=== PATIENT | male | born 1950 | race Caucasian/White ===

== ENCOUNTER 2016-05-23 07:37 | Inpatient (IN) | payer MEDICARE ==
[~2016-05-23] VITALS: Ht 162.6 cm; Wt 67.6 kg
[~2016-05-23 07:37] MED LIST: AKTOB 5 ML5 ML OD; ALDACTONE 25MG25 M1 PO; AMIODARONE PO; ASMANEX TW0.22 MG/A1 IH; ASMANEX TW0.22 MG/AC IH; ASPIRIN 32325 MG/TAB PO; ASPIRIN 81M81 MG/TA2 PO; ASPIRIN E.C. 8181 MG PO; ASPIRIN E.C.325 MG PO; B-121000 MCG PO; BACTRIM DS 8001 TAB PO; CADUET 10 MG-201 TAB PO; CALCIUM 600MG+D1 TAB PO; CALCIUM500 MG PO; CATAPRES PATCH; CETIRIZINE HYDR10 MG PO; CLEOCIN HCL300 MG PO; COUMADIN 5MG5 MG/TAB PO; COUMADIN 77.5 MG/TAB PO; COUMADIN PO; COUMADIN4 MG PO; COZAAR 50MG50 MG/TAB PEG; D3 PO; DARVOCET-N-101 UDTAB PO; DESYREL 50MG50 MG PO; DOXYCYCLINE 10100 MG PO; ENALAPRIL10 MG PO; EPA FISH OIL1000 MG PO; FISH OIL1 IU PO; FLONASE NASAL S16 GM NS; FORADIL AERO0.012 MG IH; FORTAMET1000 MG PO; FORTAMET500 MG PO; GLUCOPHAGE850 MG/TAB PO; HCTZ 25MG TAB25 MG PO; HCTZ 25MG25 MG PO; K-DUR 10 MEQ T10 MEQ PO; KLOR-CON 1010 MEQ PO; LANTUS100 U/ML SQ; LASIX 40MG TABL40 MG PO; LASIX40 MG PO; LEVAQUIN 5500 MG/TAB PO; LEVEMIR100 U/ML SC; LEVEMIR100 U/ML SQ; LOPRESSOR 225 MG/TAB PO; LOPRESSOR 550 MG/TAB PO; LOPRESSOR50 MG PO; LORATADINE10 MG PO; LOVENOX120 MG/0.8 SC; MAREPA1200 MG PO; METFORMIN850 MG PO; METOPROLOL SR50 MG PO; MICRO-K 1010 MEQ PO; MIRALAX 17GM PK1 PKT PO; MIRALAX PA17 GM/Dose PO; MULTAQ400 MG PO; MULTI VITAMINS1 TAB PO; MULTIPLE VITAMI1 CAP PO; MULTIPLE VITAMI1 TAB PO; MVI PO; MYLANTA 360 ML360 ML PO; NASONEX SPRAY17 GM NS; NORCO 325 MG-51 TAB PO; NORCO 325 MG-7.1 TAB PO; NOVLOG SQ; NOVOLOG 100U100 U/M1 SC; NOVOLOG 100U100 U/M1 SQ; NOVOLOG 100U100 U/ML SQ; NOVOLOG SQ; OMEGA-3 FISH1200 MG PO; PERCOCET 325 MG1 TA2 PO; PLAVIX 75MG TAB75 MG PO; POTASSIUM CH2 MEQ/ML PO; POTASSIUM CHLO10 ME2 PO; PRILOSEC 20MG20 MG PO; PROAIR HFA0.09 MG/AC IH; PROVENTIL0.09 MG/A1 IH; PYRIDIUM 100MG100 MG PO; REQUIP0.25 MG PO; RITE AID KRILL500 MG PO; ROXICODONE 55 MG/TAB PO; SENOKOT S 50 MG1 TAB PO; SINGULAIR10 MG PO; TOPROL PO; TOPROL XL 50MG50 MG PO; TOPROL XL100 MG PO; TRIAMC 0.1 454 TOP; ULTRAM 50MG TAB50 MG PO; VASOTEC20 MG PO; VICODIN 5/5001 UDTAB PO; VITAMIN D NATU400 IU PO; VITAMIN D1000 IU PO; VITAMIN D32000 IU PO; ZOCOR 40MG40 MG PO; ZOCOR 80MG80 MG PO; ZOCOR PO; ZOFRAN8 MG PO; ZYRTEC 10MG10 MG PO; [UNRECOGNIZED DRUG - OTHER]; [UNRECOGNIZED DRUG - OTHER] PO; [UNRECOGNIZED DRUG - OTHER] PO
[2016-05-23 08:19] VITALS: BP 124/60; PULSE 55; TEMP 97.6
[2016-05-23 10:00] VITALS: BP 133/66; PULSE 53; TEMP 97.9
[2016-05-23 10:25] LABS: CALCIUM 8.9 mg/dL (8.4-10.2); CREATININE, serum 1.14 mg/dL (0.66-1.25); MAGNESIUM 1.9 mg/dL (1.6-2.3); POTASSIUM 4.4 mmol/L (3.4-5.0)
[2016-05-23 13:26] VITALS: BP 117/56; PULSE 53; TEMP 98.5
[2016-05-23 17:23] VITALS: BP 122/64; PULSE 52; TEMP 99
[2016-05-23 22:43] VITALS: BP 131/64; PULSE 76; TEMP 99
[2016-05-24 01:31] VITALS: BP 118/50; PULSE 56; TEMP 97.6
[2016-05-24 06:22] VITALS: BP 110/56; PULSE 57; TEMP 97.7
[2016-05-24 06:55] LABS: INR 2.9 (0.8-3.0); PROTHROMBIN TIME 33.4 SECONDS (9.7-12.8)
[2016-05-24 09:36] VITALS: BP 107/61; PULSE 57; TEMP 99.2
[2016-05-24 13:39] VITALS: BP 122/62; PULSE 54; TEMP 99
[2016-05-24 17:44] VITALS: BP 141/66; PULSE 51; TEMP 98.6
[2016-05-24 22:36] VITALS: BP 121/57; PULSE 65; TEMP 98.4
[2016-05-25 01:37] VITALS: BP 128/84; PULSE 58; TEMP 98.2
[2016-05-25 05:39] VITALS: BP 142/67; PULSE 57; TEMP 98.2
[2016-05-25 12:03] VITALS: BP 133/57; PULSE 52; TEMP 97.3
[2016-05-25] MEDS ORDERED: BETAPACE 80MG80 MG PO (12:37)
[2016-05-25 13:44] VITALS: BP 110/54; PULSE 56; TEMP 97.5
[2016-05-25 18:02] VITALS: BP 127/64; PULSE 59; TEMP 98.6
== END 2016-05-25 20:18 | disposition home or self-care (01) | DRG 310 ==
LOC: MEDICAL 07:37 → SURG 08:06
PROVIDERS: Internal Medicine Interventional Cardiology
DX: I48.0 Paroxysmal atrial fibrillation (principal); R00.1 Bradycardia, unspecified; T44.7X5A Adverse effect of beta-adrenoreceptor antagonists, initial encounter; Z95.1 Presence of aortocoronary bypass graft; Z86.711 Personal history of pulmonary embolism; Z98.84 Bariatric surgery status; Z96.643 Presence of artificial hip joint, bilateral; Z79.01 Long term (current) use of anticoagulants

== ENCOUNTER 2016-06-01 15:38 | Emergency (ER) | payer MEDICARE ==
[~2016-06-01] VITALS: Ht 162.6 cm; Wt 68.2 kg
[~2016-06-01 15:38] MED LIST changes: +BETAPACE 80MG80 MG PO
[2016-06-01 15:40] VITALS: BP 141/70; TEMP 97.6
[2016-06-01 16:40] VITALS: PULSE 61
== END 2016-06-01 17:01 | disposition home or self-care (01) ==
LOC: COL.ER 15:38
DX: S50.02XA Contusion of left elbow, initial encounter (principal); S63.502A Unspecified sprain of left wrist, initial encounter; S39.012A Strain of muscle, fascia and tendon of lower back, initial encounter; W00.0XXA Fall on same level due to ice and snow, initial encounter; Y92.009 Unspecified place in unspecified non-institutional (private) residence as the place of occurrence of the external cause; I10 Essential (primary) hypertension

== ENCOUNTER 2016-07-30 07:42 | Emergency (ER) | payer MEDICARE ==
[~2016-07-30] VITALS: Ht 162.6 cm; Wt 68.2 kg
[2016-07-30 07:45] VITALS: BP 141/73; PULSE 63; TEMP 97.5
== END 2016-07-30 08:30 | disposition home or self-care (01) ==
LOC: COL.ER 07:42
DX: S39.012A Strain of muscle, fascia and tendon of lower back, initial encounter (principal); S80.02XA Contusion of left knee, initial encounter; S50.812A Abrasion of left forearm, initial encounter; S50.811A Abrasion of right forearm, initial encounter; W18.09XA Striking against other object with subsequent fall, initial encounter; Y92.481 Parking lot as the place of occurrence of the external cause

== ENCOUNTER 2016-09-25 20:29 | Observation (INO) | payer MEDICARE ==
[~2016-09-25] VITALS: Ht 162.6 cm; Wt 78.6 kg
[2016-09-25 21:16] LABS: BASO % 0.5 % (0.0-2.0); EOS # 0.1 (0.0-0.7); EOS % 2.1 % (0-4.0); GRAN # 4.8 (1.4-6.5); GRAN % 77.7 % (42.2-75.2); LYMPH # 0.6 (1.2-3.4); MEAN CELL VOLUME 80 fl (80.0-100.0); MEAN CORPUSCULAR HGB CONC 30 g/dl (33.0-37.0); MEAN PLATELET VOLUME 9.3 fl (7.4-10.4); MONO # 0.6 (0.1-0.6); MONO % 9.5 % (1.7-9.3); PLATELET COUNT 235 K/mm3 (130-400); RED BLOOD COUNT 4.29 M/mm3 (4.20-5.60); REDCELL DISTRIBUTION WIDTH-CV 15.8 % (11.5-14.5); WHITE BLOOD COUNT 6.1 K/mm3 (4.8-10.8)
[2016-09-25 21:17] LABS: HEMATOCRIT 34.5 % (42.0-52.0); HEMOGLOBIN 10.5 g/dl (13.5-18.0); MEAN CORPUSCULAR HEMOGLOBIN 24 pg (27.0-31.0)
[2016-09-25 21:20] LABS: INR 2.7 (0.8-3.0); PROTHROMBIN TIME 30.3 SECONDS (9.7-12.8)
[2016-09-25 21:23] LABS: ADJUSTED CALCIUM 8.9 mg/dL (8.4-10.2); ALBUMIN 4.3 gm/dL (3.5-5.0); CALCIUM 9.1 mg/dL (8.4-10.2); CREATININE, serum 1.01 mg/dL (0.66-1.25); POTASSIUM 3.7 mmol/L (3.4-5.0); TOTAL PROTEIN 7.3 gm/dL (6.4-8.2)
[2016-09-25] MEDS ORDERED: PHENERGAN 25 TA25 MG PO (23:00)
[2016-09-26 00:16] LABS: PH 6 (5-8); SQUAMOUS EPITHELIAL None Seen /hpf; URINE APPEARANCE Clear; URINE BACTERIA Rare /hpf; URINE BILIRUBIN Negative (NEGATIVE); URINE BLOOD Negative (NEGATIVE); URINE COLOR Yellow; URINE GLUCOSE Negative (NEGATIVE); URINE KETONE Negative (NEGATIVE); URINE RBC 0-2 /hpf; URINE UROBILINOGEN Negative (NEGATIVE); URINE WBC 0-2 /hpf
[2016-09-26] MEDS ORDERED: XANAX 1MG1 MG PO (01:42)
[2016-09-26 02:11] VITALS: BP 132/66; PULSE 67; TEMP 98.5
[2016-09-26 07:07] LABS: BASO % 0.4 % (0.0-2.0); EOS # 0.1 (0.0-0.7); EOS % 2.6 % (0-4.0); GRAN # 3.7 (1.4-6.5); GRAN % 69.2 % (42.2-75.2); LYMPH # 0.9 (1.2-3.4); LYMPH % 16.3 % (20.0-51.0); MEAN CELL VOLUME 81 fl (80.0-100.0); MEAN CORPUSCULAR HGB CONC 30 g/dl (33.0-37.0); MEAN PLATELET VOLUME 9.1 fl (7.4-10.4); MONO # 0.6 (0.1-0.6); MONO % 11.3 % (1.7-9.3); PLATELET COUNT 207 K/mm3 (130-400); RED BLOOD COUNT 3.87 M/mm3 (4.20-5.60); REDCELL DISTRIBUTION WIDTH-CV 15.8 % (11.5-14.5); WHITE BLOOD COUNT 5.4 K/mm3 (4.8-10.8)
[2016-09-26 07:15] LABS: HEMATOCRIT 31.2 % (42.0-52.0); HEMOGLOBIN 9.5 g/dl (13.5-18.0); MEAN CORPUSCULAR HEMOGLOBIN 25 pg (27.0-31.0)
[2016-09-26 07:26] VITALS: BP 134/69; PULSE 69; TEMP 98.8
[2016-09-26 07:33] LABS: CALCIUM 8.8 mg/dL (8.4-10.2); CREATININE, serum 0.95 mg/dL (0.66-1.25); POTASSIUM 3.6 mmol/L (3.4-5.0)
[2016-09-26 11:33] VITALS: BP 112/95; PULSE 72; TEMP 98.3
[2016-09-26 15:48] VITALS: BP 131/60; PULSE 72; TEMP 99.5
== END 2016-09-26 18:00 | disposition home or self-care (01) ==
LOC: COL.ER 20:29 → MEDICAL 23:36
PROVIDERS: Emergency Medicine; Nurse Practitioner Family
DX: R11.2 Nausea with vomiting, unspecified (principal); Z98.84 Bariatric surgery status; D50.9 Iron deficiency anemia, unspecified; I25.10 Atherosclerotic heart disease of native coronary artery without angina pectoris; Z95.1 Presence of aortocoronary bypass graft; Z79.01 Long term (current) use of anticoagulants; E78.5 Hyperlipidemia, unspecified; I10 Essential (primary) hypertension; I50.9 Heart failure, unspecified; I45.10 Unspecified right bundle-branch block
CPT/HCPCS: 99222-AI; C9113; G0378; J2270; J2405; J2550; J7040; J7050; Q9967

== ENCOUNTER 2016-12-02 12:20 | Emergency (ER) | payer MEDICARE ==
[~2016-12-02] VITALS: Ht 162.6 cm; Wt 75.0 kg
[~2016-12-02 12:20] MED LIST changes: +PHENERGAN 25 TA25 MG PO; +XANAX 1MG1 MG PO
[2016-12-02 12:25] VITALS: BP 131/58; PULSE 56; TEMP 98.5
== END 2016-12-02 13:26 | disposition home or self-care (01) ==
LOC: COL.ER 12:20
DX: S63.502A Unspecified sprain of left wrist, initial encounter (principal); X50.1XXA Overexertion from prolonged static or awkward postures, initial encounter; I10 Essential (primary) hypertension; I48.91 Unspecified atrial fibrillation; Z79.01 Long term (current) use of anticoagulants; I25.10 Atherosclerotic heart disease of native coronary artery without angina pectoris; Z95.1 Presence of aortocoronary bypass graft

== ENCOUNTER → 2017-01-02 | Outpatient (CLI) | payer MEDICARE | LOC: COL.RAD 07:41 | DX: D64.9 Anemia, unspecified (principal) ==

== ENCOUNTER 2017-01-23 13:08 | Emergency (ER) | payer MEDICARE ==
[2017-01-23 13:11] VITALS: BP 146/78; TEMP 96.8
[2017-01-23 13:48] LABS: BASO % 0.4 % (0.0-2.0); EOS # 0.3 (0.0-0.7); EOS % 3.5 % (0-4.0); GRAN # 7.5 (1.4-6.5); GRAN % 78.8 % (42.2-75.2); HEMATOCRIT 39.2 % (42.0-52.0); HEMOGLOBIN 12.6 g/dl (13.5-18.0); LYMPH # 0.7 (1.2-3.4); LYMPH % 7.6 % (20.0-51.0); MEAN CELL VOLUME 88 fl (80.0-100.0); MEAN CORPUSCULAR HEMOGLOBIN 28 pg (27.0-31.0); MEAN CORPUSCULAR HGB CONC 32 g/dl (33.0-37.0); MEAN PLATELET VOLUME 8.7 fl (7.4-10.4); MONO # 0.9 (0.1-0.6); MONO % 9.3 % (1.7-9.3); PLATELET COUNT 144 K/mm3 (130-400); RED BLOOD COUNT 4.47 M/mm3 (4.20-5.60); REDCELL DISTRIBUTION WIDTH-CV 19.2 % (11.5-14.5)
[2017-01-23 13:54] LABS: INR 1.7 (0.8-3.0); PROTHROMBIN TIME 19.7 SECONDS (9.7-12.8)
[2017-01-23 13:56] LABS: PARTIAL THROMBOPLASTIN TIME 36.4 SECONDS (26.0-37.0)
[2017-01-23 14:42] VITALS: PULSE 65
[2018-08-17] MEDS ORDERED: ZOCOR 40MG40 MG PO (06:52)
[2018-08-17] MEDS ORDERED: B COMPLEX & B121 TAB PO (06:53)
[2018-08-17] MEDS ORDERED: MELATONIN1 MG PO (06:53)
[2018-08-17] MEDS ORDERED: ZYRTEC5 MG PO (06:54)
[2018-10-27] MEDS ORDERED: COUMADIN 5MG5 MG/TAB PO (08:27)
[2018-10-27] MEDS ORDERED: ZYRTEC 10MG10 MG PO (08:28)
[2018-10-27] MEDS ORDERED: MELATONIN5 M1 PO (08:32)
[2018-10-27] MEDS ORDERED: VITAMIN D31000 IU PO (08:44)
== END 2017-01-23 14:44 | disposition home or self-care (01) ==
LOC: COL.ER 13:08
PROVIDERS: Emergency Medicine
DX: R04.0 Epistaxis (principal); I11.0 Hypertensive heart disease with heart failure; I50.9 Heart failure, unspecified; I48.91 Unspecified atrial fibrillation; I25.10 Atherosclerotic heart disease of native coronary artery without angina pectoris; Z79.82 Long term (current) use of aspirin; Z79.01 Long term (current) use of anticoagulants

== ENCOUNTER 2017-03-12 18:05 | Emergency (ER) | payer MEDICARE ==
[~2017-03-12] VITALS: Ht 162.6 cm; Wt 75.5 kg
[2017-03-12 18:11] VITALS: BP 127/69; PULSE 60; TEMP 98.1
[2017-03-12 19:38] LABS: BASO % 0.3 % (0.0-2.0); EOS # 0.4 (0.0-0.7); EOS % 4.4 % (0-4.0); GRAN # 6.1 (1.4-6.5); GRAN % 71.5 % (42.2-75.2); HEMATOCRIT 40.7 % (42.0-52.0); HEMOGLOBIN 13.6 g/dl (13.5-18.0); LYMPH # 1.1 (1.2-3.4); LYMPH % 12.8 % (20.0-51.0); MEAN CELL VOLUME 92 fl (80.0-100.0); MEAN CORPUSCULAR HEMOGLOBIN 31 pg (27.0-31.0); MEAN CORPUSCULAR HGB CONC 33 g/dl (33.0-37.0); MEAN PLATELET VOLUME 8.7 fl (7.4-10.4); MONO # 0.9 (0.1-0.6); MONO % 10.8 % (1.7-9.3); PLATELET COUNT 184 K/mm3 (130-400); RED BLOOD COUNT 4.42 M/mm3 (4.20-5.60); WHITE BLOOD COUNT 8.6 K/mm3 (4.8-10.8)
[2017-03-12 19:50] LABS: CALCIUM 8.5 mg/dL (8.4-10.2); CREATININE, serum 1.06 mg/dL (0.66-1.25); POTASSIUM 3.7 mmol/L (3.4-5.0)
[2017-03-12 19:54] LABS: INR 2.8 (0.8-3.0); PROTHROMBIN TIME 31.8 SECONDS (9.7-12.8)
== END 2017-03-12 20:48 | disposition home or self-care (01) ==
LOC: COL.ER 18:05
PROVIDERS: Emergency Medicine
DX: S83.91XA Sprain of unspecified site of right knee, initial encounter (principal); S00.93XA Contusion of unspecified part of head, initial encounter; S20.211A Contusion of right front wall of thorax, initial encounter; S60.512A Abrasion of left hand, initial encounter; I48.91 Unspecified atrial fibrillation; I10 Essential (primary) hypertension; Z79.82 Long term (current) use of aspirin; Z79.01 Long term (current) use of anticoagulants; W18.30XA Fall on same level, unspecified, initial encounter

== ENCOUNTER 2017-05-02 18:00 | Emergency (ER) | payer MEDICARE ==
[~2017-05-02] VITALS: Ht 162.6 cm; Wt 73.2 kg
[2017-05-02 18:07] VITALS: BP 139/85; TEMP 97.8
[2017-05-02 19:40] LABS: BASO % 0.2 % (0.0-2.0); EOS % 0.4 % (0-4.0); GRAN # 8.5 (1.4-6.5); GRAN % 83.7 % (42.2-75.2); HEMATOCRIT 39.6 % (42.0-52.0); HEMOGLOBIN 13.5 g/dl (13.5-18.0); LYMPH # 0.8 (1.2-3.4); LYMPH % 7.6 % (20.0-51.0); MEAN CELL VOLUME 97 fl (80.0-100.0); MEAN CORPUSCULAR HEMOGLOBIN 33 pg (27.0-31.0); MEAN CORPUSCULAR HGB CONC 34 g/dl (33.0-37.0); MEAN PLATELET VOLUME 8.8 fl (7.4-10.4); MONO # 0.8 (0.1-0.6); MONO % 7.6 % (1.7-9.3); PLATELET COUNT 197 K/mm3 (130-400); RED BLOOD COUNT 4.08 M/mm3 (4.20-5.60); WHITE BLOOD COUNT 10.1 K/mm3 (4.8-10.8)
[2017-05-02 19:49] LABS: PROTHROMBIN TIME 22.9 SECONDS (9.7-12.8)
[2017-05-02 19:55] LABS: ADJUSTED CALCIUM 9.1 mg/dL (8.4-10.2); ALBUMIN 4.7 gm/dL (3.5-5.0); CALCIUM 9.7 mg/dL (8.4-10.2); CREATININE, serum 1.01 mg/dL (0.66-1.25); POTASSIUM 3.7 mmol/L (3.4-5.0); TOTAL PROTEIN 7.3 gm/dL (6.4-8.2)
[2017-05-02 21:41] VITALS: PULSE 70
== END 2017-05-02 22:01 | disposition home or self-care (01) ==
LOC: COL.ER 18:00
PROVIDERS: Emergency Medicine
DX: S80.02XA Contusion of left knee, initial encounter (principal); S60.011A Contusion of right thumb without damage to nail, initial encounter; S60.512A Abrasion of left hand, initial encounter; I25.10 Atherosclerotic heart disease of native coronary artery without angina pectoris; I10 Essential (primary) hypertension; I48.91 Unspecified atrial fibrillation; Z79.01 Long term (current) use of anticoagulants; Z79.82 Long term (current) use of aspirin; W18.09XA Striking against other object with subsequent fall, initial encounter
CPT/HCPCS: J2270

== ENCOUNTER → 2017-07-14 | Outpatient (CLI) | payer MEDICARE | LOC: ZCOL.LAB 09:26 | DX: Z01.812 Encounter for preprocedural laboratory examination (principal); Z86.14 Personal history of Methicillin resistant Staphylococcus aureus infection ==

== ENCOUNTER 2018-06-04 06:26 | Emergency (ER) | payer MEDICARE ==
[~2018-06-04] VITALS: Ht 162.6 cm; Wt 84.1 kg
[2018-06-04 06:31] VITALS: TEMP 97.9
[2018-06-04] MEDS ORDERED: CLEOCIN HCL300 MG PO ×2 (07:07→07:31)
[2018-06-04 07:14] LABS: HEMATOCRIT 37.5 % (42.0-52.0); HEMOGLOBIN 12.8 g/dl (13.5-18.0); MEAN CELL VOLUME 96 fl (80.0-100.0); MEAN CORPUSCULAR HEMOGLOBIN 33 pg (27.0-31.0); MEAN CORPUSCULAR HGB CONC 34 g/dl (33.0-37.0); MEAN PLATELET VOLUME 8.6 fl (7.4-10.4); PLATELET COUNT 152 K/mm3 (130-400); RED BLOOD COUNT 3.92 M/mm3 (4.20-5.60); REDCELL DISTRIBUTION WIDTH-CV 12.9 % (11.5-14.5)
[2018-06-04] MEDS ORDERED: ZOCOR 40MG40 MG PO (07:17)
[2018-06-04] MEDS ORDERED: XANAX 1MG1 MG PO (07:18)
[2018-06-04] MEDS ORDERED: SYNTHROID0.05 MG/TA PO ×2 (07:19→07:20)
[2018-06-04 07:21] LABS: INR 2.6 (0.8-3.0); PROTHROMBIN TIME 29.8 SECONDS (9.7-12.8)
[2018-06-04 08:28] VITALS: BP 114/69; PULSE 61
== END 2018-06-04 08:26 | disposition home or self-care (01) ==
LOC: COL.ER 06:26
PROVIDERS: Emergency Medicine
DX: K91.840 Postprocedural hemorrhage of a digestive system organ or structure following a digestive system procedure (principal); I48.91 Unspecified atrial fibrillation; I25.10 Atherosclerotic heart disease of native coronary artery without angina pectoris; I10 Essential (primary) hypertension; Z95.1 Presence of aortocoronary bypass graft; Z79.01 Long term (current) use of anticoagulants; Z79.82 Long term (current) use of aspirin

== ENCOUNTER 2018-06-06 06:29 | Emergency (ER) | payer MEDICARE ==
[~2018-06-06] VITALS: Ht 162.6 cm; Wt 84.1 kg
[~2018-06-06 06:29] MED LIST changes: +SYNTHROID0.05 MG/TA PO
[2018-06-06 06:33] VITALS: TEMP 98.1
[2018-06-06 07:51] LABS: BASO % 0.3 % (0.0-2.0); EOS # 0.5 (0.0-0.7); EOS % 7.7 % (0-4.0); GRAN % 63.6 % (42.2-75.2); HEMATOCRIT 35.5 % (42.0-52.0); HEMOGLOBIN 11.8 g/dl (13.5-18.0); LYMPH # 0.8 (1.2-3.4); LYMPH % 12.6 % (20.0-51.0); MEAN CELL VOLUME 97 fl (80.0-100.0); MEAN CORPUSCULAR HEMOGLOBIN 32 pg (27.0-31.0); MEAN CORPUSCULAR HGB CONC 33 g/dl (33.0-37.0); MEAN PLATELET VOLUME 8.9 fl (7.4-10.4); MONO % 15.3 % (1.7-9.3); PLATELET COUNT 168 K/mm3 (130-400); RED BLOOD COUNT 3.68 M/mm3 (4.20-5.60); REDCELL DISTRIBUTION WIDTH-CV 13.1 % (11.5-14.5)
[2018-06-06 07:59] VITALS: BP 128/75; PULSE 57
[2018-06-06 08:03] LABS: INR 3.6 (0.8-3.0); PROTHROMBIN TIME 41.3 SECONDS (9.7-12.8)
== END 2018-06-06 08:00 | disposition home or self-care (01) ==
LOC: COL.ER 06:29
PROVIDERS: Emergency Medicine
DX: K91.840 Postprocedural hemorrhage of a digestive system organ or structure following a digestive system procedure (principal); I48.91 Unspecified atrial fibrillation; Z79.01 Long term (current) use of anticoagulants; Z98.818 Other dental procedure status; Z79.82 Long term (current) use of aspirin

== ENCOUNTER 2018-07-27 19:57 | Emergency (ER) | payer MEDICARE ==
[2018-07-27 20:00] VITALS: TEMP 97.7
[2018-07-27 20:24] LABS: BASO % 0.5 % (0.0-2.0); EOS # 0.4 (0.0-0.7); EOS % 5.8 % (0-4.0); GRAN # 4.4 (1.4-6.5); HEMATOCRIT 39.3 % (42.0-52.0); HEMOGLOBIN 12.8 g/dl (13.5-18.0); LYMPH # 0.9 (1.2-3.4); LYMPH % 13.7 % (20.0-51.0); MEAN CELL VOLUME 98 fl (80.0-100.0); MEAN CORPUSCULAR HEMOGLOBIN 32 pg (27.0-31.0); MEAN CORPUSCULAR HGB CONC 33 g/dl (33.0-37.0); MEAN PLATELET VOLUME 8.8 fl (7.4-10.4); MONO # 0.7 (0.1-0.6); MONO % 11.5 % (1.7-9.3); PLATELET COUNT 193 K/mm3 (130-400); REDCELL DISTRIBUTION WIDTH-CV 12.4 % (11.5-14.5)
[2018-07-27 20:27] LABS: PROTHROMBIN TIME 22.6 SECONDS (9.7-12.8)
[2018-07-27] MEDS ORDERED: REMERON 15M15 MG/TA1 PO (21:17)
[2018-07-27] MEDS ORDERED: NATURAL IRON65 MG PO (21:18)
[2018-07-27 21:25] LABS: COLLECTION METHOD CLEAN CATCH
[2018-07-27 21:54] LABS: PH 5 (5-8); SQUAMOUS EPITHELIAL None Seen /hpf; URINE APPEARANCE Clear; URINE BACTERIA None Seen /hpf; URINE BILIRUBIN Negative (NEGATIVE); URINE BLOOD Negative (NEGATIVE); URINE COLOR Yellow; URINE GLUCOSE Negative (NEGATIVE); URINE KETONE Negative (NEGATIVE); URINE LEUKOCYTE ESTERASE Negative (NEGATIVE); URINE NITRATE Negative (NEGATIVE); URINE PROTEIN(semi-quant) Negative (NEGATIVE); URINE RBC None Seen /hpf
[2018-07-27 21:54] LABS: ALANINE AMINOTRANSFERASE 60 U/L (21-72); ALBUMIN 3.8 gm/dL (3.5-5.0); ALKALINE PHOSPHATASE 129 U/L (50-136); ANION GAP 8 mmol/L (7-16); AST,SGOT 140 U/L (15-37); BILIRUBIN,TOTAL 0.5 mg/dL (0.0-1.0); BLOOD UREA NITROGEN 31 mg/dL (9-20); CALCIUM 8.5 mg/dL (8.4-10.2); CARBON DIOXIDE 30 mmol/L (22-30); CHLORIDE 101 mmol/L (98-107); GLUCOSE 92 mg/dL (74-106); LIPASE 55 U/L (23-300); POTASSIUM 4.2 mmol/L (3.4-5.0); SODIUM 139 mmol/L (137-145); TOTAL PROTEIN 6.8 gm/dL (6.4-8.2)
[2018-07-27 22:03] LABS: C-REACTIVE PROTEIN < 0.5 mg/dL (0.0-0.9); TROPONIN-I < 0.012 ng/mL (0.000-0.035)
[2018-07-28] VITALS: BP 114/78; PULSE 68
== END 2018-07-28 | disposition home or self-care (01) ==
LOC: COL.ER 19:57
PROVIDERS: Emergency Medicine
DX: K80.50 Calculus of bile duct without cholangitis or cholecystitis without obstruction (principal); K80.80 Other cholelithiasis without obstruction; N17.9 Acute kidney failure, unspecified; I25.10 Atherosclerotic heart disease of native coronary artery without angina pectoris; E78.5 Hyperlipidemia, unspecified; I50.9 Heart failure, unspecified; I11.0 Hypertensive heart disease with heart failure; Z95.1 Presence of aortocoronary bypass graft; Z79.82 Long term (current) use of aspirin; Z79.01 Long term (current) use of anticoagulants; Z98.84 Bariatric surgery status
CPT/HCPCS: J2405; J3010; J7030

== ENCOUNTER 2018-10-08 13:11 | Emergency (ER) | payer MEDICARE ==
[~2018-10-08] VITALS: Ht 162.6 cm; Wt 84.1 kg
[~2018-10-08 13:11] MED LIST changes: +B COMPLEX & B121 TAB PO; +MELATONIN1 MG PO; +NATURAL IRON65 MG PO; +REMERON 15M15 MG/TA1 PO; +ZYRTEC5 MG PO
[2018-10-08 13:12] VITALS: TEMP 98.6
[2018-10-08 13:35] LABS: BASO % 0.4 % (0.0-2.0); EOS # 0.4 (0.0-0.7); EOS % 5.3 % (0-4.0); GRAN # 4.7 (1.4-6.5); GRAN % 66.7 % (42.2-75.2); HEMATOCRIT 42.1 % (42.0-52.0); HEMOGLOBIN 14.3 g/dl (13.5-18.0); LYMPH # 1.1 (1.2-3.4); LYMPH % 15.3 % (20.0-51.0); MEAN CELL VOLUME 92 fl (80.0-100.0); MEAN CORPUSCULAR HEMOGLOBIN 31 pg (27.0-31.0); MEAN CORPUSCULAR HGB CONC 34 g/dl (33.0-37.0); MEAN PLATELET VOLUME 8.5 fl (7.4-10.4); MONO # 0.8 (0.1-0.6); MONO % 11.9 % (1.7-9.3); PLATELET COUNT 196 K/mm3 (130-400); RED BLOOD COUNT 4.58 M/mm3 (4.20-5.60); REDCELL DISTRIBUTION WIDTH-CV 12.7 % (11.5-14.5)
[2018-10-08 13:47] LABS: INR 3.2 (0.8-3.0); PROTHROMBIN TIME 38.4 SECONDS (9.7-12.8)
[2018-10-08] MEDS ORDERED: NORCO 325 MG-51 TAB PO (15:44)
[2018-10-08 16:30] VITALS: BP 123/88; PULSE 87
== END 2018-10-08 16:29 | disposition home or self-care (01) ==
LOC: COL.ER 13:11
PROVIDERS: Family Medicine
DX: S42.402A Unspecified fracture of lower end of left humerus, initial encounter for closed fracture (principal); S01.81XA Laceration without foreign body of other part of head, initial encounter; I10 Essential (primary) hypertension; W01.0XXA Fall on same level from slipping, tripping and stumbling without subsequent striking against object, initial encounter
CPT/HCPCS: Q4050

== ENCOUNTER → 2018-10-14 | Outpatient (CLI) | payer MEDICARE ==
[2018-10-14 17:28] LABS: HEMATOCRIT 38.6 % (42.0-52.0); HEMOGLOBIN 12.8 g/dl (13.5-18.0); MEAN CELL VOLUME 94 fl (80.0-100.0); MEAN CORPUSCULAR HEMOGLOBIN 31 pg (27.0-31.0); MEAN CORPUSCULAR HGB CONC 33 g/dl (33.0-37.0); MEAN PLATELET VOLUME 8.7 fl (7.4-10.4); PLATELET COUNT 241 K/mm3 (130-400); RED BLOOD COUNT 4.12 M/mm3 (4.20-5.60); REDCELL DISTRIBUTION WIDTH-CV 13.2 % (11.5-14.5)
[2018-10-14 17:32] LABS: INR 4.2 (0.8-3.0)
[2018-10-14 17:42] LABS: CALCIUM 9.2 mg/dL (8.4-10.2); CREATININE, serum 1.39 (0.66-1.25); POTASSIUM 4.4 mmol/L (3.4-5.0)
[2018-10-14 18:20] LABS: PROTHROMBIN TIME 51.9 SECONDS (9.7-12.8)
--- NOTE | 2018-10-17 13:31 | NUR ---
SW met with patient about Dc plan. Patient reports that his will transport home. Patient indicated that his Yamila is also DPOA. Patient indicated that his PCP is Dr. Jasmine and RX obtained from [facility]. Patient does not anticipate any needs. Denies the use of any DME. No home health
== END ==
LOC: COL.CARD 15:53
PROVIDERS: Orthopaedic Surgery
DX: S42.402A Unspecified fracture of lower end of left humerus, initial encounter for closed fracture (principal)

== ENCOUNTER 2018-10-17 05:37 | Day surgery (SDC) | payer MEDICARE ==
[2018-10-16 13:00] LABS: INR 2.7 (0.8-3.0); PROTHROMBIN TIME 32.2 SECONDS (9.7-12.8)
[2018-10-17] VITALS (10 sets, daily range): BP systolic 91–128; BP diastolic 58–86; PULSE 58–114; TEMP 97.6–98.4
[~2018-10-17] VITALS: Ht 162.6 cm; Wt 85.7 kg
--- NOTE | 2018-10-17 07:23 | NUR ---
Pt to OR with JAIME Durant at this off.
--- NOTE | 2018-10-17 09:27 | NUR ---
Pt arrived back to room 323 from OR accompanied by JAIME Durant. He is drowsy, stirs to name but does not open eyes at this time. Left arm remains in sling. CMS within normal limits.
[2018-10-17] MEDS ORDERED: NORCO 325 MG-7.1 TAB PO (09:43)
--- NOTE | 2018-10-17 10:26 | NUR ---
Pt more awake at this time, VS remain stable. Pt requested water and he was able to take a few sips without difficulty. He denies wanting food at this time. Denies pain at this time. Messaged left with , Yamila, regarding pt's condition. Pt denies any needs at this time.
--- NOTE | 2018-10-17 11:28 | NUR ---
Pt is sleeping soundly post surgery. Pt appears to be comfortable and in no distress. Left arm remains in sling. CMS within normal limits.
--- NOTE | 2018-10-17 12:12 | NUR ---
Pt awake at this time. Ambulated to restroom and urinated without difficulty. Snacking on francisco crackers and jello at this time.
--- NOTE | 2018-10-17 13:18 | NUR ---
Pt was discharged home after criteria met. All discharge instructions and paperwork was reviewed with the pt who expressed understanding and had no questions. Saline lock removed, catheter tip intact. New prescription given. Pt was escorted out of facility by staff.
== END 2018-10-17 13:27 | disposition home or self-care (01) ==
LOC: SDCO 05:37 → SURG 05:45 → SDCO 08:00
PROVIDERS: Orthopaedic Surgery
DX: S42.412A Displaced simple supracondylar fracture without intercondylar fracture of left humerus, initial encounter for closed fracture (principal); W19.XXXA Unspecified fall, initial encounter; I48.91 Unspecified atrial fibrillation; Z79.01 Long term (current) use of anticoagulants; E11.9 Type 2 diabetes mellitus without complications; Z79.4 Long term (current) use of insulin; Z86.718 Personal history of other venous thrombosis and embolism; E78.00 Pure hypercholesterolemia, unspecified; Z79.899 Other long term (current) drug therapy; I11.0 Hypertensive heart disease with heart failure; I50.9 Heart failure, unspecified; G47.33 Obstructive sleep apnea (adult) (pediatric); G89.29 Other chronic pain; Z87.442 Personal history of urinary calculi; Z88.1 Allergy status to other antibiotic agents; Z88.8 Allergy status to other drugs, medicaments and biological substances; Z96.649 Presence of unspecified artificial hip joint; Z79.82 Long term (current) use of aspirin
CPT/HCPCS: OP; C1713; J2250; J2704; J2795; J3010; J7120

== ENCOUNTER 2019-01-03 19:03 | Emergency (ER) | payer MEDICARE ==
[~2019-01-03] VITALS: Ht 162.6 cm; Wt 81.8 kg
[~2019-01-03 19:03] MED LIST changes: +MELATONIN5 M1 PO; +VITAMIN D31000 IU PO
[2019-01-03 19:05] VITALS: TEMP 98
[2019-01-03] MEDS ORDERED: NORCO 325 MG-51 TAB PO (20:08)
[2019-01-03 21:40] VITALS: BP 120/82; PULSE 65
== END 2019-01-03 21:41 | disposition home or self-care (01) ==
LOC: COL.ER 19:03
DX: S51.812A Laceration without foreign body of left forearm, initial encounter (principal); S51.012A Laceration without foreign body of left elbow, initial encounter; I25.10 Atherosclerotic heart disease of native coronary artery without angina pectoris; Z95.1 Presence of aortocoronary bypass graft; Z79.01 Long term (current) use of anticoagulants; Z79.82 Long term (current) use of aspirin; W01.0XXA Fall on same level from slipping, tripping and stumbling without subsequent striking against object, initial encounter; Y92.410 Unspecified street and highway as the place of occurrence of the external cause

== ENCOUNTER 2019-05-28 17:25 | Emergency (ER) | payer MEDICARE ==
[~2019-05-28] VITALS: Ht 162.6 cm; Wt 84.1 kg
[2019-05-28 17:36] VITALS: BP 121/58; TEMP 97.9
[2019-05-28 18:28] LABS: INR 1.1 (0.8-3.0); PROTHROMBIN TIME 12.3 SECONDS (9.7-12.8)
[2019-05-28] MEDS ORDERED: NORCO 325 MG-51 TAB PO (19:12)
[2019-05-28 19:22] VITALS: PULSE 71
== END 2019-05-28 19:20 | disposition home or self-care (01) ==
LOC: COL.ER 17:25
PROVIDERS: Emergency Medicine
DX: S20.212A Contusion of left front wall of thorax, initial encounter (principal); S80.12XA Contusion of left lower leg, initial encounter; E78.00 Pure hypercholesterolemia, unspecified; I48.91 Unspecified atrial fibrillation; R40.2412 Glasgow coma scale score 13-15, at arrival to emergency department; Z79.01 Long term (current) use of anticoagulants; Z79.82 Long term (current) use of aspirin; W01.0XXA Fall on same level from slipping, tripping and stumbling without subsequent striking against object, initial encounter; Y92.009 Unspecified place in unspecified non-institutional (private) residence as the place of occurrence of the external cause

== ENCOUNTER 2019-06-17 04:17 | Emergency (ER) | payer MEDICARE ==
[~2019-06-17] VITALS: Ht 162.6 cm; Wt 83.2 kg
[2019-06-17 04:19] VITALS: BP 159/82; TEMP 97.6
[2019-06-17] MEDS ORDERED: NORCO 325 MG-51 TAB PO (05:25)
[2019-06-17 05:32] LABS: INR 1.5 (0.8-3.0); PROTHROMBIN TIME 17.9 SECONDS (9.7-12.8)
[2019-06-17 05:59] VITALS: PULSE 58
== END 2019-06-17 05:56 | disposition home or self-care (01) ==
LOC: COL.ER 04:17
PROVIDERS: Emergency Medicine
DX: S42.415A Nondisplaced simple supracondylar fracture without intercondylar fracture of left humerus, initial encounter for closed fracture (principal); Z79.82 Long term (current) use of aspirin; Z79.01 Long term (current) use of anticoagulants; W06.XXXA Fall from bed, initial encounter; Y92.009 Unspecified place in unspecified non-institutional (private) residence as the place of occurrence of the external cause

== ENCOUNTER 2019-07-30 16:35 | Emergency (ER) | payer MEDICARE ==
[~2019-07-30] VITALS: Ht 162.6 cm; Wt 81.8 kg
[2019-07-30 16:46] VITALS: TEMP 98
[2019-07-30 18:02] VITALS: BP 129/70; PULSE 59
== END 2019-07-30 17:54 | disposition home or self-care (01) ==
LOC: COL.ER 16:35
DX: S09.90XA Unspecified injury of head, initial encounter (principal); S51.812A Laceration without foreign body of left forearm, initial encounter; I11.0 Hypertensive heart disease with heart failure; I50.9 Heart failure, unspecified; I48.91 Unspecified atrial fibrillation; I25.10 Atherosclerotic heart disease of native coronary artery without angina pectoris; R40.2412 Glasgow coma scale score 13-15, at arrival to emergency department; Z79.82 Long term (current) use of aspirin; Z79.01 Long term (current) use of anticoagulants; W01.0XXA Fall on same level from slipping, tripping and stumbling without subsequent striking against object, initial encounter

== ENCOUNTER 2020-03-09 09:40 | Day surgery (SDC) | payer MEDICARE ==
[2020-03-09] VITALS (7 sets, daily range): BP systolic 118–142; BP diastolic 69–84; PULSE 52–59; TEMP 98.9
[~2020-03-09] VITALS: Ht 162.6 cm; Wt 90.0 kg
[2020-03-09 11:03] LABS: HEMATOCRIT 40.6 % (42.0-52.0); HEMOGLOBIN 13.5 g/dl (13.5-18.0); MEAN CELL VOLUME 97 fl (80.0-100.0); MEAN CORPUSCULAR HEMOGLOBIN 32 pg (27.0-31.0); MEAN CORPUSCULAR HGB CONC 33 g/dl (33.0-37.0); MEAN PLATELET VOLUME 9.1 fl (7.4-10.4); PLATELET COUNT 186 K/mm3 (130-400); RED BLOOD COUNT 4.17 M/mm3 (4.20-5.60); REDCELL DISTRIBUTION WIDTH-CV 13.9 % (11.5-14.5)
[2020-03-09 11:15] LABS: INR 2.4 (0.8-3.0); PROTHROMBIN TIME 26.9 SECONDS (9.7-12.8)
[2020-03-09 11:18] LABS: PARTIAL THROMBOPLASTIN TIME 30.5 SECONDS (26.0-37.0)
[2020-03-09 11:20] LABS: CALCIUM 8.9 mg/dL (8.4-10.2); CREATININE, serum 1.15 (0.66-1.25); MAGNESIUM 2.2 mg/dL (1.6-2.3); POTASSIUM 4.8 mmol/L (3.4-5.0)
[2020-03-09 11:49] LABS: THYROID STIMULATING HORMONE 0.863 uIU/mL (0.465-4.680)
--- NOTE | 2020-03-09 13:15 | NUR ---
Pt ready for discharge at this time. pt has remained in sinus rhythm throughout his recovery. pt has remained alert and oriented, pwd and without complaint. he has been able to drink fluids no problem. at this time pt is up and ambulatory in room with steady gait. IV dc'd with cath intact, dressing applied. I have reviewed dc and fu instructions with pt and who deny any questions or concerns at this time. to exit via wheelchair.
== END 2020-03-09 17:01 | disposition home or self-care (01) ==
LOC: COL.CAR 09:40
PROVIDERS: Internal Medicine Cardiovascular Disease
DX: I48.0 Paroxysmal atrial fibrillation (principal); J44.9 Chronic obstructive pulmonary disease, unspecified; I25.10 Atherosclerotic heart disease of native coronary artery without angina pectoris; I10 Essential (primary) hypertension; G47.33 Obstructive sleep apnea (adult) (pediatric); E78.5 Hyperlipidemia, unspecified; I27.20 Pulmonary hypertension, unspecified; K21.9 Gastro-esophageal reflux disease without esophagitis; G89.29 Other chronic pain; E03.9 Hypothyroidism, unspecified; D64.9 Anemia, unspecified; Z95.1 Presence of aortocoronary bypass graft; Z88.8 Allergy status to other drugs, medicaments and biological substances; Z90.49 Acquired absence of other specified parts of digestive tract; Z96.651 Presence of right artificial knee joint; Z96.642 Presence of left artificial hip joint; Z79.82 Long term (current) use of aspirin; Z79.01 Long term (current) use of anticoagulants
CPT/HCPCS: J0461; J2704

== ENCOUNTER 2020-06-09 15:49 | Emergency (ER) | payer MEDICARE ==
[~2020-06-09] VITALS: Ht 162.6 cm; Wt 89.1 kg
[2020-06-09 16:43] LABS: BASO % 0.6 % (0.0-2.0); EOS # 0.4 (0.0-0.7); EOS % 5.5 % (0-4.0); GRAN # 4.9 (1.4-6.5); GRAN % 70.6 % (42.2-75.2); HEMATOCRIT 42.6 % (42.0-52.0); HEMOGLOBIN 14.2 g/dl (13.5-18.0); LYMPH # 0.8 (1.2-3.4); LYMPH % 11.8 % (20.0-51.0); MEAN CELL VOLUME 100 fl (80.0-100.0); MEAN CORPUSCULAR HEMOGLOBIN 33 pg (27.0-31.0); MEAN CORPUSCULAR HGB CONC 33 g/dl (33.0-37.0); MEAN PLATELET VOLUME 9.1 fl (7.4-10.4); MONO # 0.8 (0.1-0.6); MONO % 11.1 % (1.7-9.3); PLATELET COUNT 188 K/mm3 (130-400); RED BLOOD COUNT 4.25 M/mm3 (4.20-5.60)
[2020-06-09 16:50] LABS: INR 2.3 (0.8-3.0)
[2020-06-09 17:00] LABS: CALCIUM 8.7 mg/dL (8.4-10.2); CREATININE, serum 1.42 (0.66-1.25); POTASSIUM 4.3 mmol/L (3.4-5.0)
[2020-06-09 19:15] VITALS: BP 126/64; PULSE 62; TEMP 98
== END 2020-06-09 19:15 | disposition home or self-care (01) ==
LOC: COL.ER 15:49
PROVIDERS: Nurse Practitioner Family
DX: S09.90XA Unspecified injury of head, initial encounter (principal); S80.02XA Contusion of left knee, initial encounter; N17.9 Acute kidney failure, unspecified; I48.91 Unspecified atrial fibrillation; I25.10 Atherosclerotic heart disease of native coronary artery without angina pectoris; I50.9 Heart failure, unspecified; I10 Essential (primary) hypertension; Z79.01 Long term (current) use of anticoagulants; Z79.82 Long term (current) use of aspirin; Z86.711 Personal history of pulmonary embolism; Z88.8 Allergy status to other drugs, medicaments and biological substances; W01.0XXA Fall on same level from slipping, tripping and stumbling without subsequent striking against object, initial encounter

== ENCOUNTER 2020-06-15 08:25 | Emergency (ER) | payer MEDICARE ==
[~2020-06-15] VITALS: Ht 162.6 cm; Wt 89.1 kg
[2020-06-15 08:28] VITALS: TEMP 97.5
[2020-06-15 08:47] LABS: BASO % 0.5 % (0.0-2.0); EOS # 0.3 (0.0-0.7); EOS % 5.7 % (0-4.0); GRAN # 3.7 (1.4-6.5); GRAN % 67.4 % (42.2-75.2); HEMATOCRIT 43.6 % (42.0-52.0); HEMOGLOBIN 14.3 g/dl (13.5-18.0); LYMPH # 0.8 (1.2-3.4); LYMPH % 13.7 % (20.0-51.0); MEAN CELL VOLUME 100 fl (80.0-100.0); MEAN CORPUSCULAR HEMOGLOBIN 33 pg (27.0-31.0); MEAN CORPUSCULAR HGB CONC 33 g/dl (33.0-37.0); MEAN PLATELET VOLUME 9.1 fl (7.4-10.4); MONO # 0.7 (0.1-0.6); MONO % 12.3 % (1.7-9.3); PLATELET COUNT 171 K/mm3 (130-400); RED BLOOD COUNT 4.37 M/mm3 (4.20-5.60); REDCELL DISTRIBUTION WIDTH-CV 12.7 % (11.5-14.5)
[2020-06-15 08:57] LABS: INR 2.9 (0.8-3.0); PROTHROMBIN TIME 33.2 SECONDS (9.7-12.8)
[2020-06-15 12:06] VITALS: BP 125/76; PULSE 69
== END 2020-06-15 12:07 | disposition home or self-care (01) ==
LOC: COL.ER 08:25
PROVIDERS: Emergency Medicine
DX: R04.0 Epistaxis (principal); I10 Essential (primary) hypertension; I48.91 Unspecified atrial fibrillation; Z95.9 Presence of cardiac and vascular implant and graft, unspecified; Z88.8 Allergy status to other drugs, medicaments and biological substances; Z79.82 Long term (current) use of aspirin; Z79.01 Long term (current) use of anticoagulants

== ENCOUNTER 2020-06-16 12:12 | Emergency (ER) | payer MEDICARE ==
[~2020-06-16] VITALS: Ht 162.6 cm; Wt 89.1 kg
[2020-06-16 12:33] VITALS: BP 106/65; TEMP 97.8
[2020-06-16 15:13] VITALS: PULSE 78
== END 2020-06-16 13:11 | disposition home or self-care (01) ==
LOC: COL.ER 12:12 → EDSTATUS 12:30 → COL.ER 13:11
DX: R04.0 Epistaxis (principal); I48.91 Unspecified atrial fibrillation; Z95.1 Presence of aortocoronary bypass graft; Z88.8 Allergy status to other drugs, medicaments and biological substances; Z88.1 Allergy status to other antibiotic agents; Z79.82 Long term (current) use of aspirin; Z79.01 Long term (current) use of anticoagulants; Z79.890 Hormone replacement therapy

== ENCOUNTER 2020-08-06 17:24 | Emergency (ER) | payer MEDICARE ==
[~2020-08-06] VITALS: Ht 162.6 cm; Wt 88.6 kg
[2020-08-06 17:39] VITALS: BP 128/71; TEMP 97.6
[2020-08-06 18:41] VITALS: PULSE 62
== END 2020-08-06 18:41 | disposition home or self-care (01) ==
LOC: COL.ER 17:24
DX: S60.221A Contusion of right hand, initial encounter (principal); I48.91 Unspecified atrial fibrillation; Z88.1 Allergy status to other antibiotic agents; Z88.8 Allergy status to other drugs, medicaments and biological substances; Z79.82 Long term (current) use of aspirin; Z79.01 Long term (current) use of anticoagulants; W22.8XXA Striking against or struck by other objects, initial encounter

== ENCOUNTER 2021-02-16 17:22 | Emergency (ER) | payer MEDICARE ==
[~2021-02-16] VITALS: Ht 162.6 cm; Wt 90.9 kg
[2021-02-16 17:49] VITALS: TEMP 97.8
[2021-02-16 19:14] VITALS: BP 148/78; PULSE 76
== END 2021-02-16 19:14 | disposition home or self-care (01) ==
LOC: COL.ER 17:22
DX: S67.191A Crushing injury of left index finger, initial encounter (principal); S67.193A Crushing injury of left middle finger, initial encounter; I25.10 Atherosclerotic heart disease of native coronary artery without angina pectoris; G89.29 Other chronic pain; M54.9 Dorsalgia, unspecified; I48.91 Unspecified atrial fibrillation; I10 Essential (primary) hypertension; E78.5 Hyperlipidemia, unspecified; Z95.1 Presence of aortocoronary bypass graft; Z79.01 Long term (current) use of anticoagulants; Z88.5 Allergy status to narcotic agent; W31.89XA Contact with other specified machinery, initial encounter; Z79.82 Long term (current) use of aspirin; Z79.890 Hormone replacement therapy; Z79.899 Other long term (current) drug therapy

== ENCOUNTER 2021-08-26 08:53 | Emergency (ER) | payer MEDICARE ==
[~2021-08-26] VITALS: Ht 162.6 cm; Wt 86.4 kg
[2021-08-26 09:21] VITALS: TEMP 98.1
[2021-08-26 10:33] LABS: BASO % 0.4 % (0.0-2.0); EOS # 0.4 K/mm3 (0.0-0.7); EOS % 4.8 % (0.0-4.0); GRAN # 5.8 K/mm3 (1.4-6.5); GRAN % 75.1 % (42.2-75.2); HEMATOCRIT 41.4 % (42.0-52.0); HEMOGLOBIN 13.9 g/dl (13.5-18.0); LYMPH # 0.7 K/mm3 (1.2-3.4); MEAN CELL VOLUME 96 fl (80.0-100.0); MEAN CORPUSCULAR HEMOGLOBIN 32 pg (27-31); MEAN CORPUSCULAR HGB CONC 34 g/dl (33.0-37.0); MEAN PLATELET VOLUME 8.5 fl (7.4-10.4); MONO # 0.8 K/mm3 (0.1-0.6); MONO % 10.3 % (1.7-9.3); PLATELET COUNT 165 K/mm3 (130-400); RED BLOOD COUNT 4.32 M/mm3 (4.20-5.60); REDCELL DISTRIBUTION WIDTH-CV 13.5 % (11.5-14.5)
[2021-08-26 10:40] LABS: INR 2.3 (0.8-3.0); PROTHROMBIN TIME 25.4 SECONDS (9.7-12.8)
[2021-08-26 12:58] VITALS: BP 126/87; PULSE 78
== END 2021-08-26 13:00 | disposition home or self-care (01) ==
LOC: COL.ER 08:53
PROVIDERS: Nurse Practitioner
DX: S51.012A Laceration without foreign body of left elbow, initial encounter (principal); S09.90XA Unspecified injury of head, initial encounter; M54.2 Cervicalgia; I25.10 Atherosclerotic heart disease of native coronary artery without angina pectoris; Z95.1 Presence of aortocoronary bypass graft; Z98.890 Other specified postprocedural states; Z23 Encounter for immunization; Z79.01 Long term (current) use of anticoagulants; W06.XXXA Fall from bed, initial encounter

== ENCOUNTER 2021-11-06 13:21 | Emergency (ER) | payer MEDICARE ==
[~2021-11-06] VITALS: Ht 162.6 cm; Wt 88.6 kg
[2021-11-06 13:41] VITALS: TEMP 98
[2021-11-06] MEDS ORDERED: DOXYCYCLINE 10100 MG PO (13:57)
[2021-11-06] MEDS ORDERED: NORCO 325 MG-51 TAB PO (13:57)
[2021-11-06 14:20] VITALS: BP 132/73; PULSE 76
== END 2021-11-06 14:20 | disposition home or self-care (01) ==
LOC: COL.ER 13:21
DX: T21.12XA Burn of first degree of abdominal wall, initial encounter (principal); T21.11XA Burn of first degree of chest wall, initial encounter; I48.91 Unspecified atrial fibrillation; Z79.01 Long term (current) use of anticoagulants; Z88.1 Allergy status to other antibiotic agents; X08.8XXA Exposure to other specified smoke, fire and flames, initial encounter

== ENCOUNTER 2022-03-10 18:44 | Inpatient (IN) | payer MEDICARE ==
[~2022-03-10] VITALS: Ht 162.6 cm; Wt 79.0 kg
[2022-03-10 19:35] LABS: HEMATOCRIT 39.9 % (42.0-52.0); MEAN CELL VOLUME 94 fl (80.0-100.0); MEAN CORPUSCULAR HEMOGLOBIN 31 pg (27-31); MEAN CORPUSCULAR HGB CONC 33 g/dl (33.0-37.0); MEAN PLATELET VOLUME 8.6 fl (7.4-10.4); PLATELET COUNT 253 K/mm3 (130-400); RED BLOOD COUNT 4.26 M/mm3 (4.20-5.60); REDCELL DISTRIBUTION WIDTH-CV 14.3 % (11.5-14.5)
[2022-03-10 19:51] LABS: INR 7.1 (0.8-3.0); PROTHROMBIN TIME 83.2 SECONDS (9.7-12.8)
[2022-03-10 19:52] LABS: ALANINE AMINOTRANSFERASE 38 U/L (0-55); ALBUMIN 2.9 gm/dL (3.4-4.8); ALKALINE PHOSPHATASE 132 U/L (40-150); ANION GAP 11 mmol/L (7-16); AST,SGOT 26 U/L (5-34); BILIRUBIN,TOTAL 0.6 mg/dL (0.2-1.2); BLOOD UREA NITROGEN 23 mg/dL (8-26); CALCIUM 9.2 mg/dL (8.4-10.2); CARBON DIOXIDE 24 mmol/L (23-31); CHLORIDE 102 mmol/L (98-107); CREATININE, serum 1.45 mg/dL (0.72-1.25); GLUCOSE 135 mg/dL (70-99); POTASSIUM 4.5 mmol/L (3.5-4.5); SODIUM 137 mmol/L (136-145); TOTAL PROTEIN 6.7 gm/dL (6.2-8.1)
[2022-03-10 19:58] LABS: TROPONIN-I < 0.010 ng/mL (0.00-0.033)
[2022-03-10 20:07] LABS: BAND 9 % (0-10); EOSINOPHIL 1 % (0-4); LYMPHOCYTE 5 % (20.0-51.0); METAMYELOCYTE 1 % (0-0); NEUTROPHILS 82 % (42.0-75.2)
[2022-03-10 20:10] LABS: PLATELET ESTIMATE NORMAL (NORMAL)
[2022-03-10 20:11] LABS: ANISOCYTOSIS 1+; OVALOCYTES 1+
[2022-03-10] MEDS ORDERED: COUMADIN 5MG5 MG/TAB PO (20:46)
[2022-03-10] MEDS ORDERED: COUMADIN 22.5 MG/TAB PO (20:46)
[2022-03-10] MEDS ORDERED: NORCO 325 MG-51 TAB PO (23:06)
[2022-03-10] MEDS ORDERED: BETAPACE AF80 MG/TA1 PO (23:07)
[2022-03-10] MEDS ORDERED: K-DUR20 MEQ PO (23:08)
[2022-03-10] MEDS ORDERED: LASIX 40MG TABL40 MG PO (23:09)
[2022-03-10] MEDS ORDERED: LASIX 80MG TABL80 MG PO (23:09)
[2022-03-10] MEDS ORDERED: ASPIRIN 81M81 MG/TA2 PO (23:10)
[2022-03-10] MEDS ORDERED: AMITRIPTYLINE H25 M1 PO (23:10)
[2022-03-10 23:57] VITALS: BP 138/82; PULSE 91; TEMP 99.2
[2022-03-11] VITALS (200 sets, daily range): BP systolic 104–163; BP diastolic 61–89; PULSE 73–91; TEMP 98.1–99.6; O2SAT 67–99
--- NOTE | 2022-03-11 00:30 | NUR ---
Admitted to medical from ER- dx:CVA, has had a severe ROCHE for a couple days- states its at 9/10 at this time, over right eye- will give Industry as ordered. taking po without any issues- on fall precautions- bed alarm on, tele on. Did call Tosin MARTINEZ to see if she wanted the one bag of NS to all infuse- and she stated no- dc IV fluids now. Did have a small snack- no other requests, VSS, no confusion noted
[2022-03-11 01:26] LABS: MAGNESIUM 1.9 mg/dL (1.6-2.6)
[2022-03-11 01:47] LABS: TSH w REFLEX 2.194 uIU/mL (0.350-4.940)
--- NOTE | 2022-03-11 05:52 | NUR ---
Quiet night- was given Tylenol this morning for headache, VSS, Tele on- goes back between a fib and Tosin GAYLE aware- all rate controlled.
[2022-03-11 06:21] LABS: HEMATOCRIT 39.8 % (42.0-52.0); HEMOGLOBIN 13.3 g/dl (13.5-18.0); MEAN CELL VOLUME 93 fl (80.0-100.0); MEAN CORPUSCULAR HEMOGLOBIN 31 pg (27-31); MEAN CORPUSCULAR HGB CONC 33 g/dl (33.0-37.0); MEAN PLATELET VOLUME 8.8 fl (7.4-10.4); PLATELET COUNT 264 K/mm3 (130-400); RED BLOOD COUNT 4.26 M/mm3 (4.20-5.60); REDCELL DISTRIBUTION WIDTH-CV 14.5 % (11.5-14.5)
[2022-03-11 06:37] LABS: CHOLESTEROL RISK RATIO 2.5; CREATININE, serum 1.11 mg/dL (0.72-1.25); POTASSIUM 4.4 mmol/L (3.5-4.5)
[2022-03-11 06:50] LABS: INR 5.1 (0.8-3.0); PROTHROMBIN TIME 59.3 SECONDS (9.7-12.8)
[2022-03-11 07:22] LABS: BAND 4 % (0-10); LYMPHOCYTE 1 % (20.0-51.0); NEUTROPHILS 92 % (42.0-75.2)
[2022-03-11 07:23] LABS: PLATELET ESTIMATE NORMAL (NORMAL)
--- NOTE | 2022-03-11 09:43 | NUR ---
Initial visit; Patient thanked Revenue Manager for offering Spiritual Care and opted to be on Revenue Manager's prayer list. Patient told Revenue Manager about his daughter being an [employer] Revenue Manager and up for a promotion to Lieutenant [employer] but may retire instead. Revenue Manager mentioned he must be very proud of his daughter and he said of course he is.
--- NOTE | 2022-03-11 10:46 | NUR ---
PT UNABLE TO URINATE SPONTANEOUSLY, DR. LOMBARDO NOTIFIED, NEW ORDER FOR STRAIGHT CATH X 1 NOW, IF PT IS STILL UNABLE TO URINATE, PLACE LYON CATHETER
--- NOTE | 2022-03-11 11:35 | NUR ---
950ML OUTPUT FROM STRAIGHT CATHETERIZATION, URINE SAMPLE SENT TO LAB
[2022-03-11 11:39] LABS: COLLECTION METHOD CLEAN CATCH
[2022-03-11 11:55] LABS: MUCOUS Present (NOT PRESENT); SQUAMOUS EPITHELIAL None Seen /hpf (0-10); URINE BACTERIA None Seen /hpf (NONE SEEN); URINE RBC 0-2 /hpf (0-2)
[2022-03-11 11:59] LABS: URINE APPEARANCE Clear (CLEAR/HAZY); URINE BLOOD Negative (NEGATIVE); URINE COLOR Yellow (YELLOW); URINE GLUCOSE Negative (NEGATIVE); URINE KETONE Negative (NEGATIVE); URINE NITRATE Negative (NEGATIVE); URINE PROTEIN(semi-quant) Negative (NEGATIVE); URINE UROBILINOGEN 0.2 (NEGATIVE)
--- NOTE | 2022-03-11 14:55 | NUR ---
Nuclear Radiation Engineer met with patient to discuss discharge planning. Patient lives in [place] with his , Yamila (ph#[phone]) and sees Dr. Velásquez for primary care. Patient does not wear oxygen at home, but does use a CPAP. Patient uses no other DME and is normally independent with ADLS. Patient has DPOA-HC in EMR which designates his , Yamila and daughter, Bryanna. PT/OT ordered and recommendations are pending. Discharge Planning: Pending PT/OT recs
--- NOTE | 2022-03-11 15:55 | NUR ---
report called to interior horticulturist alex, pt's tim notified of pt being transferred to icu room 6
--- NOTE | 2022-03-11 16:36 | NUR ---
PT TRANSFERRED TO ICU PER BED, NO FURTHER CONCERNS
[2022-03-11 17:56] LABS: INR 1.3 (0.8-3.0); PROTHROMBIN TIME 14.8 SECONDS (9.7-12.8)
--- NOTE | 2022-03-11 18:58 | NUR ---
PT ARRIVED TO ICU 6 AT 1630 FROM MEDICAL FLOOR. PT A&O, C/O HEADACHE WHICH HAS BEEN ONGOING FOR DAYS AND THE REASON HE CAME IN. MEDICATION PROVIDED. PT TO TRANSFER TO . REPORT CALLED TO RECEIVING RN @ 1920. EMS HAS NOT ARRIVED AT THIS TIME.
--- NOTE | 2022-03-11 20:07 | NUR ---
PT DISCHARGED TO [facility] AT THIS TIME, EMS ARRIVED AND TRANSFERRED PT TO [facility] WITHOUT ISSUES. AT BEDSIDE. TRANSFER CENTER CALLED ON PT DEPARTURE.
== END 2022-03-11 20:08 | disposition short-term general hospital (02) | DRG 64 ==
LOC: COL.ER 18:44 → MEDICAL 21:58 → ICU 03-11 17:14
PROVIDERS: Internal Medicine; Nurse Practitioner Family; Nurse Practitioner Primary Care; ADMIT Hospitalist
PROC: 02HV33Z Insertion of Infusion Device into Superior Vena Cava, Percutaneous Approach (ICD-10-PCS; principal; 2022-03-11)
DX: I63.213 Cerebral infarction due to unspecified occlusion or stenosis of bilateral vertebral arteries (principal); I62.00 Nontraumatic subdural hemorrhage, unspecified; J18.9 Pneumonia, unspecified organism; I13.0 Hypertensive heart and chronic kidney disease with heart failure and stage 1 through stage 4 chronic kidney disease, or unspecified chronic kidney disease; I25.10 Atherosclerotic heart disease of native coronary artery without angina pectoris; I48.91 Unspecified atrial fibrillation; E78.5 Hyperlipidemia, unspecified; Z20.822 Contact with and (suspected) exposure to COVID-19; N18.9 Chronic kidney disease, unspecified; D64.9 Anemia, unspecified; R73.9 Hyperglycemia, unspecified; Z96.643 Presence of artificial hip joint, bilateral; R29.702 NIHSS score 2; J01.00 Acute maxillary sinusitis, unspecified; E03.9 Hypothyroidism, unspecified; Z79.01 Long term (current) use of anticoagulants; Z86.711 Personal history of pulmonary embolism; Z95.1 Presence of aortocoronary bypass graft; Z88.1 Allergy status to other antibiotic agents; Z88.8 Allergy status to other drugs, medicaments and biological substances; Z79.890 Hormone replacement therapy; Z79.82 Long term (current) use of aspirin; Z90.49 Acquired absence of other specified parts of digestive tract; Z23 Encounter for immunization
CPT/HCPCS: A9284; A9575; C1751; J2270; J3430; J7030; J7168; Q9967